=== PATIENT | male | born 1980 | race Caucasian/White ===

== ENCOUNTER 2020-11-06 02:22 | Emergency (ER) | payer OTHER ==
[2020-11-06 03:17] LABS: HEMOGLOBIN 16.6 gm/dl (14.0-17.5); RED BLOOD COUNT 5.19 M/UL (4.20-5.50); WHITE BLOOD COUNT 14.2 K/UL (4.5-11.0)
[2020-11-06 03:45] LABS: BUN/CREATININE RATIO 24 (0-10)
== END 2020-11-06 08:13 | disposition home or self-care (01) ==
LOC: ER1 02:22
PROVIDERS: Family Medicine
DX: R07.81 Pleurodynia (principal); E04.1 Nontoxic single thyroid nodule; R91.1 Solitary pulmonary nodule; Z86.718 Personal history of other venous thrombosis and embolism
CPT/HCPCS: 80053; 82550; 82553; 83874; 84484; 85025; 85379; 93005; 99285; Q9967

== ENCOUNTER 2022-05-03 18:16 | Emergency (ER) | payer SELFPAY ==
[2022-05-03 20:45] LABS: HEMOGLOBIN 16.3 gm/dl (14.0-17.5); RED BLOOD COUNT 5.12 M/UL (4.20-5.50); WHITE BLOOD COUNT 15.4 K/UL (4.5-11.0)
[2022-05-03 20:58] LABS: BUN/CREATININE RATIO 21 (0-10)
[2022-05-03] MEDS ORDERED: PROTONIX 40 MG40 M1 PO (22:09)
[2022-05-03] MEDS ORDERED: ZOFRAN 4 MG TAB4 MG PO (22:09)
[2022-05-03] MEDS ORDERED: HYDROCODON-ACE1 EAC4 PO (22:09)
== END 2022-05-03 22:25 | disposition home or self-care (01) ==
LOC: ER1 18:16
PROVIDERS: Preventive Medicine Occupational Medicine
DX: K85.90 Acute pancreatitis without necrosis or infection, unspecified (principal); E78.5 Hyperlipidemia, unspecified; I10 Essential (primary) hypertension
CPT/HCPCS: 71045; 80053; 81001; 82550; 82553; 83690; 83880; 84484; 85025; 85652; 86140; 87086; 93005; 96374; 99285; C9113; Q9967